=== PATIENT | male | born 1995 | race Caucasian/White ===

== ENCOUNTER 2021-04-04 13:32 | Emergency (ER) | payer OTHER ==
--- NOTE | 2021-04-04 13:48 | ED ---
General Adult HPI - General Stated complaint: Chest pain Time Seen by Provider: 04/04/21 13:32 Source: patient, RN notes reviewed, old records reviewed - History of Present Illness Initial comments: This is a 26-year-old male who presents to the emergency department complaining that his blood pressure was elevated. Patient states he could feel his chest pounding earlier today when he took his blood pressure and it was elevated. Patient was given metoprolol and Norvasc prior to arrival and his blood pressures been normal since and he has no symptoms. When I asked him if he had any chest pain or heaviness he stated he did not he only had the feeling that it was beating hard and felt tired. Patient states he is in rehabilitation for heroin abuse. Patient hasn't used in the week. 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 Patient states that occurred in 2018. EMS reported chest pain however patient denied it to me on multiple questioning. Patient denies any shortness of breath or diaphoresis. EMS reported that the patient was read per staff when his blood pressure was elevate d. - Related Data Allergies Allergy/AdvReac Type Severity Reaction Status Date / Time No Known Allergies Allergy Verified 04/04/21 13:52 Review of Systems ROS Statement: Those systems with pertinent positive or pertinent negative responses have been documented in the HPI. ROS Other: All systems not noted in ROS Statement are negative. General Exam - General Exam Comments Initial Comments: GENERAL: Patient is well-developed and well-nourished. Patient is nontoxic and well- hydrated and is in no acute distress. ENT: Neck is soft and supple. No significant lymphadenopathy is noted. Oropharynx is clear. Moist mucous membranes. Neck has full range of motion without eliciting any pain. EYES: The sclera were anicteric and conjunctiva were pink and moist. Extraocular movements were intact and pupils were equal round and reactive to light. Eyelids were unremarkable. PULMONARY: Unlabored respirations. Good breath sounds bilaterally. No audible rales rhonchi or wheezing was noted. CARDIOVASCULAR: There is a regular rate and rhythm without any murmurs gallops or rubs. ABDOMEN: Soft and nontender with normal bowel sounds. SKIN: Skin is clear with no lesions or rashes and otherwise unremarkable. NEUROLOGIC: Patient is alert and oriented x3. Cranial nerves II through XII are grossly intact. Motor and sensory are also intact. Normal speech, volume and content. Symmetrical smile. MUSCULOSKELETAL: Normal extremities with adequate strength and full range of motion. No lower extremity swelling or edema. No calf tenderness. LYMPHATICS: No significant lymphadenopathy is noted PSYCHIATRIC: Normal psychiatric evaluation. Course Vital Signs 04/04/21 13:48 Temperature 98.6 F Pulse Rate 85 Respiratory 20 Rate Blood Pressure 114/87 O2 Sat by Pulse 98 Oximetry Medical Decision Making - Medical Decision Making EKG shows normal sinus rhythm at 85 bpm CO interval 170 QRS is 84 QT interval 360 QTC is 437. Patient's EKG shows no ST segment elevation or depression. Chest x-ray shows no acute abnormality. I will begin reevaluate the patient he continued to state that he did not have chest pain or heaviness earlier and he denies any while he was in the emergency department. Currently the patient has no symptoms. - Lab Data Result diagrams: 04/04/21 13:59 04/04/21 13:59 Lab Results 04/04/21 04/04/21 04/04/21 Range/Units 13:59 13:59 13:59 WBC 12.1 H (3.8-10.6) k/uL RBC 6.17 H (4.30-5.90) m/uL Hgb 19.2 H* (13.0-17.5) gm/dL Hct 56.0 H (39.0-53.0) % MCV 90.7 (80.0-100.0) fL MCH 31.2 (25.0-35.0) pg MCHC 34.3 (31.0-37.0) g/dL RDW 13.1 (11.5-15.5) % Plt Count 248 (150-450) k/uL MPV 9.1 Neutrophils % 81 % Lymphocytes % 12 % Monocytes % 4 % Eosinophils % 1 % Basophils % 0 % Neutrophils # 9.8 H (1.3-7.7) k/uL Lymphocytes # 1.4 (1.0-4.8) k/uL Monocytes # 0.5 (0-1.0) k/uL Eosinophils # 0.1 (0-0.7) k/uL Basophils # 0.0 (0-0.2) k/uL PT 10.4 (9.0-12.0) sec INR 1.0 (<1.2) APTT 24.2 (22.0-30.0) sec Sodium 141 (137-145) mmol/L Potassium 4.8 (3.5-5.1) mmol/L Chloride 107 (98-107) mmol/L Carbon Dioxide 21 L (22-30) mmol/L Anion Gap 13 mmol/L BUN 18 (9-20) mg/dL Creatinine 0.85 (0.66-1.25) mg/dL Est GFR (CKD-EPI)AfAm >90 (>60 ml/min/1.73 sqM) Est GFR (CKD-EPI)NonAf >90 (>60 ml/min/1.73 sqM) Glucose 105 H (74-99) mg/dL Calcium 10.9 H (8.4-10.2) mg/dL Magnesium 2.2 (1.6-2.3) mg/dL Total Bilirubin 1.0 (0.2-1.3) mg/dL AST 59 (17-59) U/L ALT 51 H (4-49) U/L Alkaline Phosphatase 123 (38-126) U/L Troponin I (0.000-0.034) ng/mL Total Protein 8.5 H (6.3-8.2) g/dL Albumin 4.8 (3.5-5.0) g/dL 04/04/21 Range/Units 13:59 WBC (3.8-10.6) k/uL RBC (4.30-5.90) m/uL Hgb (13.0-17.5) gm/dL Hct (39.0-53.0) % MCV (80.0-100.0) fL MCH (25.0-35.0) pg MCHC (31.0-37.0) g/dL RDW (11.5-15.5) % Plt Count (150-450) k/uL MPV Neutrophils % % Lymphocytes % % Monocytes % % Eosinophils % % Basophils % % Neutrophils # (1.3-7.7) k/uL Lymphocytes # (1.0-4.8) k/uL Monocytes # (0-1.0) k/uL Eosinophils # (0-0.7) k/uL Basophils # (0-0.2) k/uL PT (9.0-12.0) sec INR (<1.2) APTT (22.0-30.0) sec Sodium (137-145) mmol/L Potassium (3.5-5.1) mmol/L Chloride (98-107) mmol/L Carbon Dioxide (22-30) mmol/L Anion Gap mmol/L BUN (9-20) mg/dL Creatinine (0.66-1.25) mg/dL Est GFR (CKD-EPI)AfAm (>60 ml/min/1.73 sqM) Est GFR (CKD-EPI)NonAf (>60 ml/min/1.73 sqM) Glucose (74-99) mg/dL Calcium (8.4-10.2) mg/dL Magnesium (1.6-2.3) mg/dL Total Bilirubin (0.2-1.3) mg/dL AST (17-59) U/L ALT (4-49) U/L Alkaline Phosphatase (38-126) U/L Troponin I <0.012 (0.000-0.034) ng/mL Total Protein (6.3-8.2) g/dL Albumin (3.5-5.0) g/dL Disposition Clinical Impression: Hypertensive urgency Disposition: HOME SELF-CARE Condition: Good Instructions (If sedation given, give patient instructions): Hypertension (ED) Additional Instructions: Patient should return if he is having any symptoms whatsoever. Patient is continue taking his prescribed medications. Is patient prescribed a controlled substance at d/c from ED?: No Referrals: None,Stated [Primary Care Provider] - 1-2 days Time of Disposition: 15:38
[2021-04-04 14:12] LABS: Basophils % (A) 0 %; Eosinophils # (A) 0.1 k/uL (0-0.7); Eosinophils % (A) 1 %; Lymphocytes # (A) 1.4 k/uL (1.0-4.8); Lymphocytes % (A) 12 %; MCH 31.2 pg (25.0-35.0); MCHC 34.3 g/dL (31.0-37.0); MCV 90.7 fL (80.0-100.0); Mean Platelet Volume 9.1; Monocytes # (A) 0.5 k/uL (0-1.0); Monocytes % (A) 4 %; Neutrophils # (A) 9.8 k/uL (1.3-7.7); Neutrophils % (A) 81 %; Platelet Count 248 k/uL (150-450); RBC 6.17 m/uL (4.30-5.90); RDW 13.1 % (11.5-15.5); WBC 12.1 k/uL (3.8-10.6)
[2021-04-04 14:27] LABS: Partial Thromboplastin Time 24.2 sec (22.0-30.0); Prothrombin Time 10.4 sec (9.0-12.0)
[2021-04-04 14:31] LABS: HGB 19.2 gm/dL (13.0-17.5)
[2021-04-04 14:33] LABS: ALT 51 U/L (4-49); AST 59 U/L (17-59); African American GFR (CKD) >90 (>60 ml/min/1.73 sqM); Albumin 4.8 g/dL (3.5-5.0); Alkaline Phosphatase 123 U/L (38-126); Anion Gap 13 mmol/L; Blood Urea Nitrogen 18 mg/dL (9-20); Calcium 10.9 mg/dL (8.4-10.2); Carbon Dioxide 21 mmol/L (22-30); Chloride 107 mmol/L (98-107); Glucose 105 mg/dL (74-99); Magnesium 2.2 mg/dL (1.6-2.3); Non-African American GFR(CKD) >90 (>60 ml/min/1.73 sqM); Potassium 4.8 mmol/L (3.5-5.1); Sodium 141 mmol/L (137-145); Total Protein 8.5 g/dL (6.3-8.2)
--- NOTE | 2021-04-04 14:36 | XR ---
EXAMINATION TYPE: XR chest 2V DATE OF EXAM: 04/04/2021 COMPARISON: NONE HISTORY: Chest pain TECHNIQUE: Frontal and lateral views of the chest are obtained. FINDINGS: There is no focal air space opacity. No evidence for pneumothorax. No pleural effusion. The cardiac silhouette size is within normal limits. The osseous structures are grossly intact. IMPRESSION: 1. No acute cardiopulmonary process.
[2021-04-04 15:59] VITALS: RESP 18
[2021-04-04 16:05] VITALS: BP 123/85; PULSE 76; TEMP 97.6
== END 2021-04-04 16:05 | disposition home or self-care (01) ==
LOC: EC 13:32
DX: I16.0 Hypertensive urgency (principal)
CPT/HCPCS: 36415; 71046; 80053; 83735; 84484; 85025; 85610; 85730; 93005; 99285